=== PATIENT | male | born 1960 | race Caucasian/White ===

== ENCOUNTER → 2017-01-06 | Outpatient (CLI) | payer MEDICAID ==
[~2017-01-06] MED LIST: CALC-52 PO; FINA5TAB42 PO; GABA-338 PO; MULT-933 PO; NICO1PAT15 TOP; OXYC1TAB8 PO; PROC10TA PO; TAMS-1 PO
--- NOTE | 2017-01-06 11:06 | DI ---
Indication:ITS.REASON: K21.9 GERD; R13.10 DYSPHAGIA Procedure:ESOPHAGRAM, UGI,CONT X2 ESOPHAGRAM/UPPER GI WITH AIR CONTRAST: Technique:After ingesting air crystals, the patient swallowed thick and thin barium without difficulty. Fluoroscopic imaging was obtained in the upright LPO, supine AP, LPO, RPO, and right lateral positions. Findings: Esophagus: The esophagus is negative. Esophageal motility appears normal. The cricopharyngeus muscle relaxes completely. There is no Zenker's diverticulum. No hiatal hernia or gastroesophageal reflux is visualized. A right-sided port catheter is visualized. Stomach: The stomach is negative. It is normal in contour and appearance. The mucosal fold patterns appear normal. There is no obvious ulcer. There is no filling defect to suggest a mass. Duodenum: The duodenum is negative. The mucosal fold patterns are normal. There is no obvious ulcer. There is no filling defect to suggest a mass. The duodenal sweep crosses midline in a normal fashion. There is no malrotation or obstruction of the visualized portions of the small bowel. Impression:Negative esophagram/upper GI with air contrast. Fluoroscopy dose: 37.02 mGy (Cumulative air kerma) Paul Powell RPA/RRA performed this under my direct supervision. .
== END ==
LOC: IMA 09:05
PROVIDERS: ATTEND Surgery
DX: K21.9 Gastro-esophageal reflux disease without esophagitis (principal); R13.10 Dysphagia, unspecified